=== PATIENT | male | born 1990 | race Two or more races ===

== ENCOUNTER 2020-09-09 10:22 | Emergency (ER) | payer SELFPAY ==
[2020-09-09] MEDS ORDERED: cefTRIAXone 500 MG Vial IM ONE (11:33)
--- NOTE | 2020-09-09 11:33 | EDM.PDOC ---
ED HPI GENERAL MEDICAL PROBLEM - General Chief Complaint: General Stated Complaint: STD CHECK Time Seen by Provider: 09/09/20 11:16 Source of Information: Reports: Patient, RN. Denies: Old Records History Limitations: Reports: No Limitations - History of Present Illness INITIAL COMMENTS - FREE TEXT/NARRATIVE: 29 yo male presents for STD testing. He states that his girlfriend is currently in care home and while in care home was dx'd with syphilis. He has not been to the clinic for this. He is not having sx's. He found out about his girlfriend's dx a week ago. He does not have a doctor anywhere. 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 (see below) (none) - Related Data Allergies Allergy/AdvReac Type Severity Reaction Status Date / Time No Known Allergies Allergy Verified 09/09/20 10:58 Home Meds: Home Meds NK [No Known Home Meds] 09/09/20 [History] Past Medical History Neurological History: Reports: Head Trauma Social & Family History - Tobacco Use Tobacco Use Status *Q: Current Every Day Tobacco User Years of Tobacco use: 10 Packs/Tins Daily: 0.5 - Caffeine Use Caffeine Use: Reports: Coffee, Energy Drinks, Soda - Recreational Drug Use Recreational Drug Use: Yes Recreational Drug Type: Reports: Marijuana/Hashish Recreational Drug Use Frequency: Weekly ED ROS GENERAL - Review of Systems Review Of Systems: See Below Constitutional: Reports: No Symptoms : Reports: No Symptoms. Denies: Discharge, Dysuria, Frequency, Hematuria, Urgency Skin: Reports: No Symptoms. Denies: Rash ED EXAM, GENERAL - Physical Exam Exam: See Below Exam Limited By: No Limitations General Appearance: Alert, WD/WN, No Apparent Distress (Male) Exam: Normal Inspection Neurological: Alert, Oriented, CN II-XII Intact, Normal Cognition, No Motor/Sensory Deficits Psychiatric: Normal Affect, Normal Mood Skin Exam: Warm, Dry, Intact, Normal Color, No Rash Course - Vital Signs Last Recorded V/S: Last Vital Signs Temp 36.0 C L 09/09/20 11:05 Pulse 94 09/09/20 11:05 Resp 26 H 09/09/20 11:05 BP 153/103 H 09/09/20 11:05 Pulse Ox 98 09/09/20 11:05 - Orders/Labs/Meds Orders: Active Orders 24 hr Category Date Time Status CHLAMYDIA/GC AMPLIFICATION Stat Lab 09/09/20 10:59 Ordered Syphilis [T PALLIDUM SCREENING CASCADE] Urgent Lab 09/09/20 11:13 Ordered Departure - Departure Time of Disposition: 12:05 Disposition: Home, Self-Care 01 Condition: Good Clinical Impression: STD exposure - Discharge Information *PRESCRIPTION DRUG MONITORING PROGRAM REVIEWED*: Not Applicable *COPY OF PRESCRIPTION DRUG MONITORING REPORT IN PATIENT EMLA: Not Applicable Referrals: PCP,None [Primary Care Provider] - Additional Instructions: No sex for 72 hrs, or use a condom if you do. If you test positive for any of these diseases, the [facility] department may contact you. We advise that you get established with a doctor of your own in your area. Sepsis Event Note (ED) - Evaluation Sepsis Screening Result: No Definite Risk - Focused Exam Vital Signs: Vital Signs Temp Pulse Resp BP Pulse Ox 09/09/20 11:05 36.0 C L 94 26 H 153/103 H 98 09/09/20 10:48 36.0 C L 94 26 H 153/103 H 98 - My Orders Last 24 Hours: My Active Orders 09/09/20 10:59 CHLAMYDIA/GC AMPLIFICATION Stat 09/09/20 11:13 Syphilis [T PALLIDUM SCREENING CASCADE] Urgent - Assessment/Plan Last 24 Hours: My Active Orders 09/09/20 10:59 CHLAMYDIA/GC AMPLIFICATION Stat 09/09/20 11:13 Syphilis [T PALLIDUM SCREENING CASCADE] Urgent
[2020-09-09] MEDS ORDERED: Azithromycin 250 MG Tab PO ONE (11:34)
[2020-09-09] MEDS ORDERED: Penicillin G Benzathine 1,200,000 Units/2 ML Syringe IM ONE (11:35)
[2020-09-09] MEDS ORDERED: Penicillin G Benzathine 1,200,000 Units/2 ML Syringe ONE (11:57)
[2020-09-12 03:11] LABS: CHLAMYDIA TRACHOMATIS, NAA Negative (Negative); NEISSERIA GONORRHOEAE, NAA Negative (Negative)
[2020-09-12 06:11] LABS: RPR Reactive (Non Reactive); RPR, QUANT 1:32 (NonRea<1:1); T PALLIDUM ANTIBODIES Reactive (Non Reactive)
== END 2020-09-09 12:28 | disposition home or self-care (01) ==
LOC: JP.ED 10:22
DX: Z20.2 Contact with and (suspected) exposure to infections with a predominantly sexual mode of transmission (principal); Z72.0 Tobacco use
CPT/HCPCS: 86780; 87491; 87591; 96372; 99283; A9270; J0561; J0696; 36415

== ENCOUNTER 2020-12-01 17:48 | Emergency (ER) | payer SELFPAY ==
[2020-12-01] MEDS ORDERED: Diphtheria,Pertussis(Acell),Tetanus Vaccine 0.5 ML Syringe IM ONE (18:01)
[2020-12-01] MEDS ORDERED: Bacitracin Oint 1 GM U/D Packet TOP ONE (18:26)
--- NOTE | 2020-12-01 18:32 | EDM.PDOC ---
ED HPI GENERAL MEDICAL PROBLEM - General Chief Complaint: Trauma Stated Complaint: CUTS TO LEFT SIDE OF BODY Time Seen by Provider: 12/01/20 17:55 Source of Information: Reports: Patient History Limitations: Reports: No Limitations - History of Present Illness INITIAL COMMENTS - FREE TEXT/NARRATIVE: TRAUMA CODE 17:50 MD in room 18:03 Mathew is a 30-year-old male presenting to the ED for evaluation after falling "40 feet" off a ladder while shingling a roof. The patient was applying metal shingles when he lost his footing on the ladder causing him to fall. He did in cise his left thigh and left upper arm on the sharp shingles. The patient states that he landed on his feet and did a parkour rollout move. He denies any other injuries except for the lacerations. He denies any head or neck pain. He has no chest or back pain. He has no obvious deformities. He denies any numbness or tingling. As a side note, the patient did take 10-12 shots of tequila before coming to the ED to "prepare himself". He denies any loss of consciousness and is able to ambulate and converse normally. - Related Data Allergies Allergy/AdvReac Type Severity Reaction Status Date / Time No Known Allergies Allergy Verified 12/01/20 18:23 Home Meds: Home Meds NK [No Known Home Meds] 09/09/20 [History] Past Medical History Neurological History: Reports: Head Trauma Social & Family History - Caffeine Use Caffeine Use: Reports: Coffee, Energy Drinks, Soda Review of Systems - Review of Systems Review Of Systems: See Below Constitutional: Reports: No Symptoms Eyes: Reports: No Symptoms Ears: Reports: No Symptoms Nose: Reports: No Symptoms Mouth/Throat: Reports: No Symptoms Respiratory: Reports: No Symptoms Cardiovascular: Reports: No Symptoms GI/Abdominal: Reports: No Symptoms Genitourinary: Reports: No Symptoms Musculoskeletal: Reports: Arm Pain (Left arm pain just above the elbow adjacent to a laceration.), Other (Left thigh pain adjacent to a laceration.) Skin: Reports: Wound (A 0.8 cm laceration on the left arm and a 3.0 cm laceration on the left thigh.) Neurological: Reports: No Symptoms Psychiatric: Reports: No Symptoms ED EXAM, GENERAL - Physical Exam Exam: See Below Exam Limited By: No Limitations General Appearance: Alert, No Apparent Distress, Anxious Eye Exam: Bilateral Eye: EOMI, PERRL Nose: Normal Inspection Throat/Mouth: Normal Inspection, Normal Oropharynx, Normal Voice, No Airway Compromise Head: Atraumatic, Normocephalic Neck: Normal Inspection, Supple, Non-Tender, Full Range of Motion Respiratory/Chest: No Respiratory Distress, Lungs Clear, Normal Breath Sounds Cardiovascular: Normal Peripheral Pulses, Regular Rate, Rhythm, No Murmur Peripheral Pulses: 2+: Radial (L), Radial (R), Posterior Tibial (L), Posterior Tibial (R) GI/Abdominal: Normal Bowel Sounds, Soft, Non-Tender (Male) Exam: No Hernia Back Exam: Normal Inspection, Full Range of Motion. No: Muscle Spasm, Paraspinal Tenderness, Vertebral Tenderness Extremities: Normal Range of Motion Neurological: Alert, Oriented, CN II-XII Intact, Normal Cognition, No Motor/Sensory Deficits Psychiatric: Normal Affect, Normal Mood, Anxious Skin Exam: Warm, Dry, Wound/Incision (0.8 cm laceration on the left arm just above the elbow. 3.0 cm laceration left posterior lateral thigh that goes deep into the muscle layer.) Lymphatic: No Adenopathy ED TRAUMA PROCEDURES - Laceration/Wound Repair Left Lower Posterior Lateral Arm Lac/Wound Length In cm: 0.8 Appearance: Subcutaneous, Linear Distal NVT: Neuro & Vascular Intact Anesthetic Type: Local Local Anesthesia - Lidocaine (Xylocaine): 1% with EPI Local Anesthetic Volume: 1cc Skin Prep: Chlorhexidine (Hibiciens) Exploration/Debridement/Repair: Wound Explored, In a Bloodless Field, Explored to Base Closed With: Sutures Suture Size: 4-0 # of Sutures: 3 Suture Type: Nylon, Interrupted Tetanus Status Addressed: Yes Complications: No Left Lower Posterior Lateral Thigh Lac/Wound Length In cm: 3.0 Appearance: Muscle Distal NVT: Neuro & Vascular Intact Anesthetic Type: Local Local Anesthesia - Lidocaine (Xylocaine): 1% with EPI Local Anesthetic Volume: 3cc Skin Prep: Chlorhexidine (Hibiciens) Exploration/Debridement/Repair: Wound Explored, In a Bloodless Field, Explored to Base Closed With: Sutures Suture Size: 4-0 # of Sutures: 3 Suture Type: Nylon, Interrupted Tetanus Status Addressed: Yes Complications: No Course - Vital Signs Last Recorded V/S: Last Vital Signs Temp 36.6 C 12/01/20 17:57 Pulse 121 H 12/01/20 18:22 Resp 16 12/01/20 18:22 BP 142/80 H 12/01/20 18:22 Pulse Ox 96 12/01/20 18:22 - Orders/Labs/Meds Orders: Active Orders 24 hr Category Date Time Status Vaccines to be Administered [RC] PER UNIT ROUTINE Care 12/01/20 18:01 Active COMPREHENSIVE METABOLIC PN,CMP [CHEM] Stat Lab 12/01/20 18:00 Received ETHANOL BLOOD MEDICAL [CHEM] Stat Lab 12/01/20 18:00 Received Bacitracin [Bacitracin Oint 1 GM] Med 12/01/20 18:26 Once 1 dose TOP ONETIME ONE Medication Orders Bacitracin (Bacitracin Oint 1 Gm U/D Packet) 1 dose TOP ONETIME ONE Stop: 12/01/20 18:27 Labs: Laboratory Tests 12/01/20 Range/Units 18:00 WBC 8.0 (4.5-11.0) K/uL RBC 4.96 (4.30-5.90) M/uL Hgb 15.2 H (12.0-15.0) g/dL Hct 44.6 (40.0-54.0) % MCV 90 (80-98) fL MCH 31 (27-31) pg MCHC 34 (32-36) % Plt Count 302 (150-400) K/uL Neut % (Auto) 53.5 (36-66) % Lymph % (Auto) 35.4 (24-44) % White % (Auto) 5.7 (2-6) % Eos % (Auto) 5.0 H (2-4) % Baso % (Auto) 0.4 (0-1) % Meds: Medications Generic Name Dose Route Start Last Admin Trade Name Freq PRN Reason Stop Dose Admin Bacitracin 1 dose 12/01/20 18:26 Bacitracin Oint 1 Gm U/D Packet TOP 12/01/20 18:27 ONETIME ONE Discontinued Medications Generic Name Dose Route Start Last Admin Trade Name Freq PRN Reason Stop Dose Admin Diphtheria/Tetanus/Acell Pertussis 0.5 ml 12/01/20 18:01 Diphtheria,Pertussis(Acell),Tetanus Vaccine 0.5 Ml Syringe IM 12/01/20 18:02 .ONCE ONE Lidocaine HCl 5 ml 12/01/20 18:01 Lidocaine 1% 5 Ml Sdv INJECT 12/01/20 18:02 ONETIME ONE - Re-Assessments/Exams Free Text/Narrative Re-Assessment/Exam: 12/01/20 18:35 presently, the patient had no substantial injuries other than the lacerations. He is neurovascularly intact. The lacerations were repaired using 4-0 Ethilon requiring 3 simple interrupted sutures at each site. Patient tolerated procedure well. Care of the lacerations were discussed. Indications return to the ED were discussed with the patient. At this time he is cleared and able to return home. Departure - Departure Time of Disposition: 18:27 Disposition: Home, Self-Care 01 Clinical Impression: Fall from ladder Qualifiers: Encounter type: initial encounter Qualified Code(s): W11.XXXA - Fall on and from ladder, initial encounter Laceration of left upper extremity Qualifiers: Encounter type: initial encounter Qualified Code(s): S41.112A - Laceration without foreign body of left upper arm, initial encounter Laceration of left thigh Qualifiers: Encounter type: initial encounter Qualified Code(s): S71.112A - Laceration without foreign body, left thigh, initial encounter - Discharge Information Instructions: Laceration Care, Adult Referrals: PCP,None [Primary Care Provider] - Care Plan Goals: You will likely be more sore tomorrow due to the fall. You may want to take Tylenol or ibuprofen for the pain. We placed sutures to closure wounds on your arm and leg. These will need to be removed in 7 days. You may go to your local clinic or return to the ED for this. Please apply a light coating of Neosporin or bacitracin to the wounds once a day. Keep the wounds clean and dry for the next 24 hours. He is to be careful when on the ladder especially around sharp objects. We will free to contact us should you have any questions. Sepsis Event Note (ED) - Focused Exam Vital Signs: Vital Signs Temp Pulse Resp BP Pulse Ox 12/01/20 18:22 121 H 16 142/80 H 96 12/01/20 17:57 36.6 C 122 H 16 142/99 H 96 - Problem List & Annotations (1) Fall from ladder SNOMED Code(s): 68332383 Code(s): W11.XXXA - FALL ON AND FROM LADDER, INITIAL ENCOUNTER Status: Acute Priority: High Current Visit: Yes Qualifiers: Encounter type: initial encounter Qualified Code(s): W11.XXXA - Fall on and from ladder, initial encounter (2) Laceration of left thigh SNOMED Code(s): 918768317, 27406889013082175 Code(s): S71.112A - LACERATION WITHOUT FOREIGN BODY, LEFT THIGH, INIT ENCNTR Status: Acute Priority: High Current Visit: Yes Qualifiers: Encounter type: initial encounter Qualified Code(s): S71.112A - Laceration without foreign body, left thigh, initial encounter (3) Laceration of left upper extremity SNOMED Code(s): 280882277 Code(s): S41.112A - LACERATION W/O FOREIGN BODY OF LEFT UPPER ARM, INIT ENCNTR Status: Acute Priority: High Current Visit: Yes Qualifiers: Encounter type: initial encounter Qualified Code(s): S41.112A - Laceration without foreign body of left upper arm, initial encounter - Problem List Review Problem List Initiated/Reviewed/Updated: Yes - My Orders Last 24 Hours: My Active Orders 12/01/20 18:00 COMPREHENSIVE METABOLIC PN,CMP [CHEM] Stat ETHANOL BLOOD MEDICAL [CHEM] Stat 12/01/20 18:01 Vaccines to be Administered [RC] PER UNIT ROUTINE 12/01/20 18:26 Bacitracin [Bacitracin Oint 1 GM] 1 dose TOP ONETIME ONE - Assessment/Plan Last 24 Hours: My Active Orders 12/01/20 18:00 COMPREHENSIVE METABOLIC PN,CMP [CHEM] Stat ETHANOL BLOOD MEDICAL [CHEM] Stat 12/01/20 18:01 Vaccines to be Administered [RC] PER UNIT ROUTINE 12/01/20 18:26 Bacitracin [Bacitracin Oint 1 GM] 1 dose TOP ONETIME ONE
== END 2020-12-01 18:42 | disposition home or self-care (01) ==
LOC: JP.ED 17:48
DX: S71.112A Laceration without foreign body, left thigh, initial encounter (principal); S41.112A Laceration without foreign body of left upper arm, initial encounter; Z23 Encounter for immunization; W11.XXXA Fall on and from ladder, initial encounter; W26.8XXA Contact with other sharp object(s), not elsewhere classified, initial encounter
CPT/HCPCS: 12002; 36415; 80053; 80307; 85025; 90471; 90715; 99284-25

== ENCOUNTER 2020-12-30 20:58 | Emergency (ER) | payer SELFPAY ==
[2020-12-30] MEDS ORDERED: cefTRIAXone 1 GM Vial IM ONE (21:22)
--- NOTE | 2020-12-30 21:30 | EDM.PDOC ---
ED HPI GENERAL MEDICAL PROBLEM - General Chief Complaint: Lower Extremity Injury/Pain Stated Complaint: SWELLING ON L LEG Time Seen by Provider: 12/30/20 21:18 Source of Information: Reports: Patient History Limitations: Reports: No Limitations - History of Present Illness INITIAL COMMENTS - FREE TEXT/NARRATIVE: Mathew is a 30-year-old male presenting to the ED for evaluation of a red, painful, swollen left anterior wall. The patient initially injured the area while skateboarding 4 days ago. He says that he did a jump, went down a ramp, and the board kicked back hitting him just below the left knee. He has been keeping the area covered and putting antibiotic ointment on it, however, it is become more painful, started to express pus, and has become more swollen and red prompting him to come in for evaluation. The patient meets sepsis criteria based on the screening with a tachycardia and redness of the wound. Denies any fever or chills, nausea or vomiting, numbness or tingling, or weakness in the left lower extremity. Left Lower Leg Pain Score (Numeric/FACES): 5 - Related Data Allergies Allergy/AdvReac Type Severity Reaction Status Date / Time bee venom protein (honey bee) Allergy Anaphylactic Verified 12/30/20 21:10 Shock cauliflower Allergy Anaphylactic Verified 12/30/20 21:10 Shock Home Meds: Home Meds NK [No Known Home Meds] 09/09/20 [History] Past Medical History Neurological History: Reports: Head Trauma Social & Family History - Tobacco Use Tobacco Use Status *Q: Light Tobacco User Years of Tobacco use: 22 Packs/Tins Daily: 0.2 - Caffeine Use Caffeine Use: Reports: Coffee, Energy Drinks, Soda Review of Systems - Review of Systems Review Of Systems: See Below Constitutional: Reports: No Symptoms Musculoskeletal: Reports: Leg Pain (Proximal left leg pain, swelling, increased redness, and purulent discharge from the anterior wall wound.) Skin: Reports: Wound (A 4 x 5 cm area of redness, edema, increased temperature, and tenderness. Proximal anterior wall on the left.) Neurological: Reports: No Symptoms ED EXAM, GENERAL - Physical Exam Exam: See Below Exam Limited By: No Limitations General Appearance: Alert, No Apparent Distress Cardiovascular: Normal Peripheral Pulses, Regular Rate, Rhythm, No Murmur, Tachycardia Peripheral Pulses: 2+: Posterior Tibial (L) Extremities: Increased Warmth (Area of increased warmth, redness, swelling, with a midline wound measuring 4.1 x 5 cm. There is purulent discharge from the center of this wound. The area is quite tender to palpation.) Neurological: Alert, Oriented, Normal Cognition, No Motor/Sensory Deficits Skin Exam: Erythema, Increased Warmth, Wound/Incision (Midline wound approximately 5 cm below the knee on the anterior wall accompanied by an area of 4.1 x 5 cm with increased erythema, temperature, redness, edema and a central drain producing purulent discharge. This was cultured.) Lymphatic: No Adenopathy Course - Vital Signs Last Recorded V/S: Last Vital Signs Temp 35.8 C L 12/30/20 21:13 Pulse 105 H 12/30/20 21:13 Resp 18 12/30/20 21:13 BP 168/102 H 12/30/20 21:13 Pulse Ox 98 12/30/20 21:13 - Orders/Labs/Meds Orders: Active Orders 24 hr Category Date Time Status CULTURE WOUND + SMEAR [RM] Stat Lab 12/30/20 22:20 Results Labs: Laboratory Tests 12/30/20 12/30/20 12/30/20 Range/Units 21:34 21:34 21:34 WBC 8.1 (4.5-11.0) K/uL RBC 4.59 (4.30-5.90) M/uL Hgb 14.0 (12.0-15.0) g/dL Hct 41.2 (40.0-54.0) % MCV 90 (80-98) fL MCH 31 (27-31) pg MCHC 34 (32-36) % Plt Count 275 (150-400) K/uL Neut % (Auto) 56.3 (36-66) % Lymph % (Auto) 30.6 (24-44) % Rankin % (Auto) 8.4 H (2-6) % Eos % (Auto) 4.3 H (2-4) % Baso % (Auto) 0.4 (0-1) % Sodium 142 (140-148) mmol/L Potassium 3.9 (3.6-5.2) mmol/L Chloride 103 (100-108) mmol/L Carbon Dioxide 26 (21-32) mmol/L Anion Gap 13.5 (5.0-14.0) mmol/L BUN 21 H (7-18) mg/dL Creatinine 0.9 (0.8-1.3) mg/dL Est Cr Clr Drug Dosing 128.60 mL/min Estimated GFR (MDRD) > 60 (>60) Glucose 200 H (74-106) mg/dL Lactic Acid 1.2 (0.4-2.0) mmol/L Calcium 8.4 L (8.5-10.1) mg/dL C-Reactive Protein 0.32 H (0.0-0.3) mg/dL Meds: Medications Discontinued Medications Generic Name Dose Route Start Last Admin Trade Name Freq PRN Reason Stop Dose Admin Ceftriaxone Sodium 1 gm 12/30/20 21:22 12/30/20 21:41 Ceftriaxone 1 Gm Vial IM 12/30/20 21:23 1 gm ONETIME ONE Administration Lidocaine HCl 2 ml 12/30/20 21:32 12/30/20 21:41 Lidocaine 1% 5 Ml Sdv INJECT 12/30/20 21:33 2 ml ONETIME ONE Administration - Re-Assessments/Exams Free Text/Narrative Re-Assessment/Exam: 12/30/20 21:29 because the patient met sepsis criteria on the triage, we did check a CBC, basic metabolic panel, CRP, and lactic acid. We will initiate antibiotic therapy with Rocephin 1 g IM. This is likely a significant cellulitis, however, by examination I do not believe the patient is septic. 12/30/20 22:26 I reviewed the patient's labs showing a leukocyte count of 8.1 with a hemoglobin of 14.0 and hematocrit of 41.2. Platelet count is 275,000. Basic metabolic profile shows a sodium 142, potassium 3.9, chloride of 103, bicarbonate of 26, BUN of 21 with a creatinine of 0.9 and a glucose of 200. Raises a suspicion for diabetes. The C-reactive protein is 0.32 and the lactic acid is normal at 1.2. The patient was given Rocephin 1 g IM to initiate therapy. We will put him on cephalexin 500 mg 4 times daily for 10 days. A wound culture is currently pending and should this come back positive for MRSA we would add Bactrim to the medical regime. At this time, the patient is suitable for discharge in satisfactory condition. Indications return to the ED were discussed. All questions were answered prior to discharge. Departure - Departure Time of Disposition: 22:28 Disposition: Home, Self-Care 01 Clinical Impression: Cellulitis of left leg without foot - Discharge Information Instructions: Cellulitis, Adult, [id number] Referrals: PCP,None [Primary Care Provider] - Forms: ED Department Discharge Care Plan Goals: Your work-up today shown that you have a significant skin infection. This appears to be localized to the leg itself and not in your bloodstream. We initiated antibiotic therapy with the shot that you received called Rocephin. I am also going to continue this with oral medication called cephalexin that you will be taking 4 times a day for the next 10 days. You should see significant improvement in the wound over the course of the next 2 to 3 days. Of note, your blood glucose is significantly elevated at 200 so I would recommend following up with your primary care provider to discuss whether or not diabetes may be needing to be treated. Certainly feel free to return to the ED for reevaluation should this wound worsen. A wound culture is currently pending and if it shows that the organism is resistant to the antibiotics, we will contact you to change antibiotics. Sepsis Event Note (ED) - Evaluation Sepsis Screening Result: Possible Sepsis Risk - Focused Exam Vital Signs: Vital Signs Temp Pulse Resp BP Pulse Ox 12/30/20 21:13 35.8 C L 105 H 18 168/102 H 98 12/30/20 21:08 35.8 C L 105 H 18 168/102 H 98 - Problem List & Annotations (1) Cellulitis of left leg without foot SNOMED Code(s): 393793528 Code(s): L03.116 - CELLULITIS OF LEFT LOWER LIMB Status: Acute Priority: Medium Current Visit: Yes - Problem List Review Problem List Initiated/Reviewed/Updated: Yes - My Orders Last 24 Hours: My Active Orders 12/30/20 22:20 CULTURE WOUND + SMEAR [RM] Stat - Assessment/Plan Last 24 Hours: My Active Orders 12/30/20 22:20 CULTURE WOUND + SMEAR [RM] Stat
== END 2020-12-30 22:41 | disposition home or self-care (01) ==
LOC: JP.ED 20:58
DX: L03.116 Cellulitis of left lower limb (principal); Z91.030 Bee allergy status; Z72.0 Tobacco use; Z91.018 Allergy to other foods
CPT/HCPCS: 36415; 80048; 83605; 85025; 86140; 87070; 87205; 96372; 99283; J0696

== ENCOUNTER 2021-04-04 02:28 | Emergency (ER) | payer SELFPAY ==
--- NOTE | 2021-04-04 03:01 | EDM.PDOC ---
ED HPI GENERAL MEDICAL PROBLEM - General Chief Complaint: Upper Extremity Injury/Pain Stated Complaint: LEFT ARM PAIN Time Seen by Provider: 04/04/21 02:40 Source of Information: Reports: Patient History Limitations: Reports: No Limitations - History of Present Illness INITIAL COMMENTS - FREE TEXT/NARRATIVE: 30-year-old male was sleeping when he heard the child crying so he rolled over in bed to get up and as he was getting out of his bed the left shoulder and upper arm tightened and became painful. This then radiated into the front of his chest, it felt better to hold his arm against his chest but if he tried to move it it was sore and it was worse if he extended his arm. He started to panic thinking he was having a heart attack and came in to be seen. The pain went away by the time he got to the emergency room. He is anxious, jittery and his blood pressure is elevated at 179/109 and his pulse is over 140. He is afebrile. Onset: Sudden (Woke up with pain just over an hour ago) Location: Reports: Upper Extremity, Left Associated Symptoms: Reports: No Other Symptoms - Related Data Allergies Allergy/AdvReac Type Severity Reaction Status Date / Time bee venom protein (honey bee) Allergy Anaphylactic Verified 04/04/21 02:44 Shock cauliflower Allergy Anaphylactic Verified 04/04/21 02:44 Shock Home Meds: Home Meds NK [No Known Home Meds] 09/09/20 [History] Past Medical History Cardiovascular History: Reports: Hypertension Neurological History: Reports: Head Trauma - Infectious Disease History Infectious Disease History: Reports: Chicken Pox Social & Family History - Tobacco Use Tobacco Use Status *Q: Current Every Day Tobacco User Years of Tobacco use: 15 Packs/Tins Daily: 1 - Caffeine Use Caffeine Use: Reports: Energy Drinks - Recreational Drug Use Recreational Drug Use: Yes Drug Use in Last 12 Months: Yes Recreational Drug Type: Reports: Marijuana/Hashish Recreational Drug Use Frequency: Not Used In Over 1 Month Review of Systems - Review of Systems Review Of Systems: See Below Constitutional: Denies: Fever Respiratory: Reports: No Symptoms Cardiovascular: Reports: Chest Pain (Sharp pain in the left anterior chest radiating into the shoulder) Musculoskeletal: Reports: Arm Pain (Left side) Skin: Reports: No Symptoms Neurological: Reports: No Symptoms Psychiatric: Reports: Anxiety ED EXAM, GENERAL - Physical Exam Exam: See Below Exam Limited By: No Limitations General Appearance: Alert, No Apparent Distress, Anxious Eye Exam: Bilateral Eye: Normal Inspection Head: Atraumatic Neck: Supple, Non-Tender Respiratory/Chest: Lungs Clear Cardiovascular: Regular Rate, Rhythm, Tachycardia Extremities: Other (He has some minimal palpation tenderness to the distal deltoid and lateral bicep but no significant pain with active range of motion. Also some mild tenderness to palpation of the costochondral area in the left chest.) Neurological: Alert, Oriented Psychiatric: Anxious Skin Exam: Warm, Dry, Other (No rash over the painful area) Course - Vital Signs Last Recorded V/S: Last Vital Signs Temp 97.0 F 04/04/21 02:48 Pulse 140 H 04/04/21 02:48 Resp 18 04/04/21 02:48 BP 179/109 H 04/04/21 02:48 Pulse Ox 99 04/04/21 02:48 - Re-Assessments/Exams Free Text/Narrative Re-Assessment/Exam: 04/04/21 02:59 Explained to the patient that he likely woke up with a muscle spasm and is still having some lingering discomfort but there is a concern about his tachycardia and blood pressure and there is a possibility of an electrolyte imbalance or mild dehydration causing muscle spasm. I told him I wanted to check his urine and a few blood test to check electrolytes and his kidney function but he said if it "wasn't his heart he was good". He then became anxious about leaving and refused any further work-up. I did strongly recommend that he get a regular doctor to get a physical to follow his blood pressure and he agreed. Departure - Departure Time of Disposition: 03:05 Disposition: Home, Self-Care 01 Clinical Impression: Left arm pain, Tachycardia - Discharge Information Instructions: Muscle Cramps and Spasms, [id number] Referrals: PCP,None [Primary Care Provider] - Forms: ED Department Discharge Care Plan Goals: Stay hydrated, and ibuprofen may be helpful if pain persists, and I would strongly recommend a regular medical checkup with a primary doctor in the near future. You can always return to the emergency room if symptoms are recurring or more persistent. Sepsis Event Note (ED) - Evaluation Sepsis Screening Result: No Definite Risk
== END 2021-04-04 03:06 | disposition home or self-care (01) ==
LOC: JP.ED 02:28
DX: M79.602 Pain in left arm (principal); R00.0 Tachycardia, unspecified; I10 Essential (primary) hypertension; Z72.0 Tobacco use; Z91.030 Bee allergy status; Z91.018 Allergy to other foods
CPT/HCPCS: 99283

== ENCOUNTER 2021-04-04 20:42 | Emergency (ER) | payer SELFPAY ==
--- NOTE | 2021-04-04 21:31 | EDM.PDOC ---
ED HPI GENERAL MEDICAL PROBLEM - General Chief Complaint: Upper Extremity Injury/Pain Stated Complaint: CHEST PAIN, LEFT SHOULDER PAIN Time Seen by Provider: 04/04/21 21:15 Source of Information: Reports: Patient, Family History Limitations: Reports: No Limitations - History of Present Illness INITIAL COMMENTS - FREE TEXT/NARRATIVE: 30-year-old male was seen last night with left arm pain but left before work-up can be done. He is back tonight because the pain is back again, radiates into the axillary area into the anterior left chest. He thinks he is having a "TIA". He also has some pleuritic pain with breathing, feels short of breath with activity. His tachycardia is less intense tonight. No fevers or chills. Onset: Sudden (Symptoms started fairly suddenly just under 24 hours ago when he rolled over in bed) Duration: Hour(s): (22 to 23 hours) Location: Reports: Chest, Upper Extremity, Left Associated Symptoms: Reports: Chest Pain, Shortness of Breath (With activity). Denies: Cough, Fever/Chills, Malaise, Nausea/Vomiting, Weakness Left Axillary Pain Score (Numeric/FACES): 3 - Related Data Allergies Allergy/AdvReac Type Severity Reaction Status Date / Time bee venom protein (honey bee) Allergy Anaphylactic Verified 04/04/21 20:54 Shock cauliflower Allergy Anaphylactic Verified 04/04/21 20:54 Shock Home Meds: Home Meds NK [No Known Home Meds] 09/09/20 [History] Past Medical History Cardiovascular History: Reports: Hypertension Neurological History: Reports: Head Trauma - Infectious Disease History Infectious Disease History: Reports: Chicken Pox Social & Family History - Tobacco Use Tobacco Use Status *Q: Current Every Day Tobacco User Years of Tobacco use: 15 Packs/Tins Daily: 1 - Caffeine Use Caffeine Use: Reports: Energy Drinks - Recreational Drug Use Recreational Drug Use: Yes Drug Use in Last 12 Months: Yes Recreational Drug Type: Reports: Marijuana/Hashish Review of Systems - Review of Systems Review Of Systems: See Below Constitutional: Denies: Fever Eyes: Reports: No Symptoms Respiratory: Reports: Pleuritic Chest Pain Cardiovascular: Reports: Chest Pain GI/Abdominal: Denies: Abdominal Pain Musculoskeletal: Reports: Muscle Pain (Sore in the left deltoid and left anterior chest) Skin: Reports: No Symptoms. Denies: Rash Neurological: Reports: No Symptoms ED EXAM, GENERAL - Physical Exam Exam: See Below Exam Limited By: No Limitations General Appearance: Alert, No Apparent Distress Eye Exam: Bilateral Eye: Normal Inspection Head: Atraumatic Neck: Supple, Non-Tender Respiratory/Chest: Lungs Clear, Other (Patient is very sore to palpation along the left costochondral area of the anterior left chest, also sore through the anterior left deltoid. Increased pain with flexion of the shoulder against resistance. No pain with passive range of motion.) Cardiovascular: Regular Rate, Rhythm, Tachycardia (Mild tachycardia, not as sign ificant as last evening) GI/Abdominal: Soft, Non-Tender Neurological: Alert, Oriented Psychiatric: Anxious Skin Exam: Warm, Dry #1 Interpretation EKG Date: 04/04/21 Rhythm: NSR Course - Vital Signs Last Recorded V/S: Last Vital Signs Temp 97.0 F 04/04/21 21:03 Pulse 118 H 04/04/21 21:03 Resp 16 04/04/21 21:03 BP 151/102 H 04/04/21 21:03 Pulse Ox 98 04/04/21 21:03 - Orders/Labs/Meds Orders: Active Orders 24 hr Category Date Time Status Chest 2V [CR] Stat Exams 04/04/21 21:16 Taken EKG 12 Lead [EK] Routine Ther 04/04/21 21:05 Ordered Labs: Laboratory Tests 04/04/21 04/04/21 04/04/21 Range/Units 21:05 21:06 21:31 WBC 8.9 (4.5-11.0) K/uL RBC 5.04 (4.30-5.90) M/uL Hgb 15.1 H (12.0-15.0) g/dL Hct 44.0 (40.0-54.0) % MCV 87 (80-98) fL MCH 30 (27-31) pg MCHC 34 (32-36) % Plt Count 296 (150-400) K/uL Neut % (Auto) 52.4 (36-66) % Lymph % (Auto) 36.7 (24-44) % [place] % (Auto) 7.6 H (2-6) % Eos % (Auto) 2.9 (2-4) % Baso % (Auto) 0.4 (0-1) % D-Dimer, Quantitative (0.0-500.0) ng/mL Sodium (140-148) mmol/L Potassium (3.6-5.2) mmol/L Chloride (100-108) mmol/L Carbon Dioxide (21-32) mmol/L Anion Gap (5.0-14.0) mmol/L BUN (7-18) mg/dL Creatinine (0.8-1.3) mg/dL Est Cr Clr Drug Dosing mL/min Estimated GFR (MDRD) (>60) Glucose (74-106) mg/dL Calcium (8.5-10.1) mg/dL Troponin I (0.000-0.056) ng/mL Urine Color Yellow (YELLOW) Urine Appearance Clear (CLEAR) Urine pH 5.5 (5.0-8.0) Ur Specific [place] 1.025 (1.008-1.030) Urine Protein Negative (NEGATIVE) mg/dL Urine Glucose (UA) Negative (NEGATIVE) mg/dL Urine Ketones Trace H (NEGATIVE) mg/dL Urine Occult Blood Negative (NEGATIVE) Urine Nitrite Negative (NEGATIVE) Urine Bilirubin Negative (NEGATIVE) Urine Urobilinogen 0.2 (0.2-1.0) EU/dL Ur Leukocyte Esterase Negative (NEGATIVE) Urine RBC 0-5 (0-5) Urine WBC 0-5 (0-5) Ur Epithelial Cells Not seen Amorphous Sediment Occasional Urine Bacteria Occasional Urine Mucus Occasional Urine Opiates Screen Negative (NEGATIVE) Ur Oxycodone Screen Negative (NEGATIVE) Urine Methadone Screen Negative (NEGATIVE) Ur Propoxyphene Screen Negative (NEGATIVE) Ur Barbiturates Screen Negative (NEGATIVE) Ur Tricyclics Screen Negative (NEGATIVE) Ur Phencyclidine Scrn Negative (NEGATIVE) Ur Amphetamine Screen Negative (NEGATIVE) U Methamphetamines Scrn Presumptive positive H (NEGATIVE) Urine MDMA Screen Negative (NEGATIVE) U Benzodiazepines Scrn Negative (NEGATIVE) U Cocaine Metab Screen Negative (NEGATIVE) U Marijuana (THC) Screen Negative (NEGATIVE) 04/04/21 04/04/21 Range/Units 21:31 21:31 WBC (4.5-11.0) K/uL RBC (4.30-5.90) M/uL Hgb (12.0-15.0) g/dL Hct (40.0-54.0) % MCV (80-98) fL MCH (27-31) pg MCHC (32-36) % Plt Count (150-400) K/uL Neut % (Auto) (36-66) % Lymph % (Auto) (24-44) % [place] % (Auto) (2-6) % Eos % (Auto) (2-4) % Baso % (Auto) (0-1) % D-Dimer, Quantitative 393.08 (0.0-500.0) ng/mL Sodium 143 (140-148) mmol/L Potassium 3.9 (3.6-5.2) mmol/L Chloride 104 (100-108) mmol/L Carbon Dioxide 26 (21-32) mmol/L Anion Gap 12.8 (5.0-14.0) mmol/L BUN 12 (7-18) mg/dL Creatinine 1.0 (0.8-1.3) mg/dL Est Cr Clr Drug Dosing 113.53 mL/min Estimated GFR (MDRD) > 60 (>60) Glucose 146 H (74-106) mg/dL Calcium 8.6 (8.5-10.1) mg/dL Troponin I < 0.017 (0.000-0.056) ng/mL Urine Color (YELLOW) Urine Appearance (CLEAR) Urine pH (5.0-8.0) Ur Specific [place] (1.008-1.030) Urine Protein (NEGATIVE) mg/dL Urine Glucose (UA) (NEGATIVE) mg/dL Urine Ketones (NEGATIVE) mg/dL Urine Occult Blood (NEGATIVE) Urine Nitrite (NEGATIVE) Urine Bilirubin (NEGATIVE) Urine Urobilinogen (0.2-1.0) EU/dL Ur Leukocyte Esterase (NEGATIVE) Urine RBC (0-5) Urine WBC (0-5) Ur Epithelial Cells Amorphous Sediment Urine Bacteria Urine Mucus Urine Opiates Screen (NEGATIVE) Ur Oxycodone Screen (NEGATIVE) Urine Methadone Screen (NEGATIVE) Ur Propoxyphene Screen (NEGATIVE) Ur Barbiturates Screen (NEGATIVE) Ur Tricyclics Screen (NEGATIVE) Ur Phencyclidine Scrn (NEGATIVE) Ur Amphetamine Screen (NEGATIVE) U Methamphetamines Scrn (NEGATIVE) Urine MDMA Screen (NEGATIVE) U Benzodiazepines Scrn (NEGATIVE) U Cocaine Metab Screen (NEGATIVE) U Marijuana (THC) Screen (NEGATIVE) - Re-Assessments/Exams Free Text/Narrative Re-Assessment/Exam: 04/04/21 21:30 EKG was done which was normal. CBC CMP troponin D-dimer and urine drug screen were obtained. Also a two-view chest x-ray. 04/04/21 22:35 D-dimer was normal, troponin was 0, all his labs were normal except his urine was positive for methamphetamine. This patient is having chest wall pain or musc uloskeletal discomfort exacerbated by methamphetamine abuse. He was encouraged to use an anti-inflammatory for the next couple of days and avoid any further methamphetamine use. Departure - Departure Time of Disposition: 22:40 Disposition: Home, Self-Care 01 Clinical Impression: Methamphetamine abuse, Acute chest wall pain - Discharge Information Instructions: Chest Wall Pain, [id number] Referrals: PCP,None [Primary Care Provider] - Forms: ED Department Discharge Care Plan Goals: Take ibuprofen or naproxen daily for the next couple of days and increase a ctivity as tolerated. Avoid abusing methamphetamine in the future, it just makes physical symptoms worse. Sepsis Event Note (ED) - Evaluation Sepsis Screening Result: No Definite Risk - Focused Exam Vital Signs: Vital Signs Temp Pulse Resp BP Pulse Ox 04/04/21 21:03 97.0 F 118 H 16 151/102 H 98 - My Orders Last 24 Hours: My Active Orders 04/04/21 21:05 EKG 12 Lead [EK] Routine 04/04/21 21:16 Chest 2V [CR] Stat - Assessment/Plan Last 24 Hours: My Active Orders 04/04/21 21:05 EKG 12 Lead [EK] Routine 04/04/21 21:16 Chest 2V [CR] Stat
--- NOTE | 2021-04-05 09:52 | CR ---
CHEST: 2 view CLINICAL HISTORY:Chest pain COMPARISON:None FINDINGS: The heart size, pulmonary vascularity and hilar structures are normal. No infiltrate effusion or pneumothorax is seen. IMPRESSION: No acute cardiopulmonary process.
== END 2021-04-04 22:40 | disposition home or self-care (01) ==
LOC: JP.ED 20:42
DX: R07.89 Other chest pain (principal); F15.10 Other stimulant abuse, uncomplicated; I10 Essential (primary) hypertension; Z72.0 Tobacco use; Z91.030 Bee allergy status; Z91.048 Other nonmedicinal substance allergy status
CPT/HCPCS: 36415; 71046; 71046-26; 80048; 80305-QW; 81001; 84484; 85025; 85379; 93005; 99285-25

== ENCOUNTER 2021-08-02 01:33 | Emergency (ER) | payer SELFPAY ==
[2021-08-02] MEDS ORDERED: Sodium Chloride 0.9% 10 ML Syringe FLUSH PRN (01:57)
[2021-08-02] MEDS ORDERED: LORazepam 2 MG/ML SDV IVPUSH ONE (01:57)
[2021-08-02 06:20] LABS: CORONAVIRUS COVID-19 NAA NEGATIVE (NEGATIVE)
[2021-08-02] MEDS ORDERED: Nitroglycerin 0.4 MG Tab.SL SL ONE (06:33)
== END 2021-08-02 08:10 ==
LOC: JP.ED 01:33
DX: F41.0 Panic disorder [episodic paroxysmal anxiety] (principal); F10.129 Alcohol abuse with intoxication, unspecified; I10 Essential (primary) hypertension; Z91.030 Bee allergy status; Z91.048 Other nonmedicinal substance allergy status; Z20.822 Contact with and (suspected) exposure to COVID-19; Y90.3 Blood alcohol level of 60-79 mg/100 ml
CPT/HCPCS: 0241U; 36415; 80053; 80305-QW; 80307; 84484; 85025; 93005; 96374; 99283; 99285-25; A9270-GY; J2060

== ENCOUNTER 2021-09-04 08:30 | Emergency (ER) | payer MEDICAID, OTHER ==
[2021-09-04] MEDS ORDERED: Ketorolac 30 MG/ML SDV IM ONE (10:00)
[2021-09-04 12:19] LABS: CORONAVIRUS COVID-19 NAA NEGATIVE (NEGATIVE)
== END 2021-09-04 11:56 ==
LOC: JP.ED 08:30
DX: S43.102A Unspecified dislocation of left acromioclavicular joint, initial encounter (principal); S44.32XA Injury of axillary nerve, left arm, initial encounter; R20.2 Paresthesia of skin; R20.0 Anesthesia of skin; I10 Essential (primary) hypertension; Z86.16 Personal history of COVID-19; Z72.0 Tobacco use; Z91.030 Bee allergy status; Z91.048 Other nonmedicinal substance allergy status; Z20.822 Contact with and (suspected) exposure to COVID-19; W26.0XXA Contact with knife, initial encounter
CPT/HCPCS: 0241U; 36415; 73030-LT; 80048; 85025; 93010; 96372; 99283; 99284-25; J1885

== ENCOUNTER 2022-09-20 03:33 | Emergency (ER) | payer SELFPAY ==
[2022-09-20 04:17] LABS: BASOPHILS ABSOLUTE AUTO 0.03 K/uL (0.00-0.10); BASOPHILS PERCENT AUTO 0.5 % (0.1-1.3); EOSINOPHILS ABSOLUTE AUTO 0.11 K/uL (0.00-0.40); EOSINOPHILS PERCENT AUTO 1.9 % (0.0-5.4); HEMATOCRIT 16.4 % (38.4-49.7); IMMATURE GRAN PERCENT AUTO 0.3 % (0.0-0.7); LYMPHOCYTES ABSOLUTE AUTO 1.44 K/uL (0.8-3.3); LYMPHOCYTES PERCENT AUTO 24.6 % (11.4-47.7); MEAN CORPUSCULAR HEMOGLOBIN 26.2 pg (31.6-35.5); MEAN CORPUSCULAR HGB CONC 29.3 g/dL (31.6-35.5); MEAN CORPUSCULAR VOLUME 89.6 fL (81.4-99.0); MONOCYTES ABSOLUTE AUTO 0.51 K/uL (0.20-0.90); MONOCYTES PERCENT AUTO 8.7 % (3.3-12.6); NEUTROPHILS ABSOLUTE AUTO 3.75 K/uL (1.0-7.6); PLATELET COUNT,PLT 170 K/uL (130-375); RED BLOOD CELL COUNT 1.83 M/uL (4.14-5.76); WHITE BLOOD CELL COUNT,WBC 5.9 K/uL (3.2-11.0)
[2022-09-20] MEDS ORDERED: Sodium Chloride 0.9% 10 ML Syringe FLUSH PRN (04:19)
[2022-09-20 04:26] LABS: IMMATURE GRAN ABSOLUTE AUTO 0.02 K/uL (0.00-0.23)
[2022-09-20] MEDS ORDERED: Pantoprazole 40 MG Vial IVPUSH SCH (04:30)
[2022-09-20] MEDS ORDERED: Octreotide 500 MCG in Sodium Chloride 0.9% 497.5 ML IV SCH (04:30)
[2022-09-20 04:31] LABS: INR 1.1; PROTHROMBIN TIME 11.3 sec (9.2-10.6)
[2022-09-20 04:37] LABS: ALANINE AMINOTRANSFERASE,ALT 30 U/L (12-78); ALBUMIN 1.8 g/dL (3.4-5.0); ALKALINE PHOSPHATASE 343 U/L (46-116); ASPARTATE AMNIOTRANSFERASE,AST 52 U/L (15-37); BILIRUBIN TOTAL 0.8 mg/dL (0.2-1.0); BLOOD UREA NITROGEN,BUN 10 mg/dL (7-18); CARBON DIOXIDE,CO2 26 mmol/L (21-32); CHLORIDE,CL 105 mmol/L (100-108); CREATININE 0.7 mg/dL (0.8-1.3); EST CRCL DRUG DOSING (CG) 156.43 mL/min; ESTIMATED GFR 126 mL/min (>60); GLUCOSE RANDOM 110 mg/dL (74-106); LIPASE 203 U/L (73-393); POTASSIUM,K 3.7 mmol/L (3.6-5.2); PROTEIN TOTAL,TP 5.8 g/dL (6.4-8.2); SODIUM,NA 135 mmol/L (140-148)
[2022-09-20 04:38] LABS: A/G RATIO 0.5 (1.2-2.2); ANION GAP 7.7 mmol/L (5.0-14.0)
[2022-09-20] MEDS ORDERED: Ondansetron 4 MG/2 ML SDV IVPUSH ONE (04:54)
[2022-09-20 05:05] LABS: HEMOGLOBIN 4.8 g/dL (12.9-16.9)
[2022-09-20] MEDS ORDERED: HYDROmorphone 1 MG/ML Syringe IVPUSH ONE (05:11)
== END 2022-09-20 06:18 ==
LOC: JP.ED 03:33
DX: K70.30 Alcoholic cirrhosis of liver without ascites (principal); K76.6 Portal hypertension; I85.10 Secondary esophageal varices without bleeding; D62 Acute posthemorrhagic anemia; F17.210 Nicotine dependence, cigarettes, uncomplicated; Z86.16 Personal history of COVID-19; Z91.030 Bee allergy status; Z91.018 Allergy to other foods; Z79.899 Other long term (current) drug therapy; Z20.822 Contact with and (suspected) exposure to COVID-19
CPT/HCPCS: 36415; 36430; 80053; 80307; 83690; 85025; 85610; 86850; 86900; 86901; 86920; 86922; 87635; 93005; 96365; 96366; 96375; 99285; C9113; J1170; J2354; J2405; J3490; J7040; P9016; U0002

== ENCOUNTER 2023-02-07 22:51 | Emergency (ER) | payer OTHER ==
[2023-02-07 23:25] LABS: BASOPHILS ABSOLUTE AUTO 0.06 K/uL (0.00-0.10); EOSINOPHILS ABSOLUTE AUTO 0.07 K/uL (0.00-0.40); EOSINOPHILS PERCENT AUTO 1.2 % (0.0-5.4); HEMATOCRIT 32.5 % (38.4-49.7); HEMOGLOBIN 9.5 g/dL (12.9-16.9); IMMATURE GRAN PERCENT AUTO 0.2 % (0.0-0.7); LYMPHOCYTES ABSOLUTE AUTO 2.38 K/uL (0.8-3.3); LYMPHOCYTES PERCENT AUTO 41.2 % (11.4-47.7); MEAN CORPUSCULAR HEMOGLOBIN 21.7 pg (31.6-35.5); MEAN CORPUSCULAR HGB CONC 29.2 g/dL (31.6-35.5); MEAN CORPUSCULAR VOLUME 74.4 fL (81.4-99.0); MONOCYTES PERCENT AUTO 5.2 % (3.3-12.6); NEUTROPHILS ABSOLUTE AUTO 2.95 K/uL (1.0-7.6); NEUTROPHILS PERCENT AUTO 51.2 % (40.0-78.1); PLATELET COUNT,PLT 208 K/uL (130-375); RED BLOOD CELL COUNT 4.37 M/uL (4.14-5.76); WHITE BLOOD CELL COUNT,WBC 5.8 K/uL (3.2-11.0)
[2023-02-07 23:26] LABS: IMMATURE GRAN ABSOLUTE AUTO 0.01 K/uL (0.00-0.23)
[2023-02-08 00:24] LABS: ALANINE AMINOTRANSFERASE,ALT 91 U/L (12-78); ALBUMIN 3.8 g/dL (3.4-5.0); ALKALINE PHOSPHATASE 264 U/L (46-116); ASPARTATE AMNIOTRANSFERASE,AST 109 U/L (15-37); BILIRUBIN TOTAL 0.8 mg/dL (0.2-1.0); BLOOD UREA NITROGEN,BUN 9 mg/dL (7-18); CALCIUM 7.8 mg/dL (8.5-10.1); CARBON DIOXIDE,CO2 25 mmol/L (21-32); CHLORIDE,CL 110 mmol/L (100-108); CREATININE 0.6 mg/dL (0.8-1.3); EST CRCL DRUG DOSING (CG) 186.51 mL/min; ESTIMATED GFR 131 mL/min (>60); GLUCOSE RANDOM 90 mg/dL (74-106); POTASSIUM,K 3.6 mmol/L (3.6-5.2); PROTEIN TOTAL,TP 7.8 g/dL (6.4-8.2); SODIUM,NA 148 mmol/L (140-148)
[2023-02-08 00:25] LABS: ANION GAP 16.6 mmol/L (5.0-14.0)
== END 2023-02-08 00:11 ==
LOC: JP.ED 22:51
DX: F10.129 Alcohol abuse with intoxication, unspecified (principal); I10 Essential (primary) hypertension; Z91.030 Bee allergy status; Z91.018 Allergy to other foods
CPT/HCPCS: 36415; 80053; 85025; 99283

== ENCOUNTER 2023-02-09 12:20 | Emergency (ER) | payer MEDICAID, OTHER ==
[2023-02-09 14:11] LABS: BASOPHILS ABSOLUTE AUTO 0.03 K/uL (0.00-0.10); BASOPHILS PERCENT AUTO 0.9 % (0.1-1.3); EOSINOPHILS ABSOLUTE AUTO 0.04 K/uL (0.00-0.40); EOSINOPHILS PERCENT AUTO 1.3 % (0.0-5.4); HEMOGLOBIN 9.2 g/dL (12.9-16.9); IMMATURE GRAN PERCENT AUTO 0.3 % (0.0-0.7); LYMPHOCYTES ABSOLUTE AUTO 0.69 K/uL (0.8-3.3); LYMPHOCYTES PERCENT AUTO 21.7 % (11.4-47.7); MEAN CORPUSCULAR HEMOGLOBIN 21.8 pg (31.6-35.5); MEAN CORPUSCULAR HGB CONC 28.8 g/dL (31.6-35.5); MEAN CORPUSCULAR VOLUME 75.8 fL (81.4-99.0); MONOCYTES ABSOLUTE AUTO 0.18 K/uL (0.20-0.90); MONOCYTES PERCENT AUTO 5.7 % (3.3-12.6); NEUTROPHILS ABSOLUTE AUTO 2.23 K/uL (1.0-7.6); NEUTROPHILS PERCENT AUTO 70.1 % (40.0-78.1); PLATELET COUNT,PLT 160 K/uL (130-375); RED BLOOD CELL COUNT 4.22 M/uL (4.14-5.76); WHITE BLOOD CELL COUNT,WBC 3.2 K/uL (3.2-11.0)
[2023-02-09 14:15] LABS: IMMATURE GRAN ABSOLUTE AUTO 0.01 K/uL (0.00-0.23)
[2023-02-09 14:32] LABS: A/G RATIO 0.8 (1.2-2.2); ALANINE AMINOTRANSFERASE,ALT 76 U/L (12-78); ALBUMIN 3.3 g/dL (3.4-5.0); ALKALINE PHOSPHATASE 269 U/L (46-116); ANION GAP 8.9 mmol/L (5.0-14.0); ASPARTATE AMNIOTRANSFERASE,AST 91 U/L (15-37); BILIRUBIN TOTAL 1.2 mg/dL (0.2-1.0); BLOOD UREA NITROGEN,BUN 11 mg/dL (7-18); CALCIUM 8.3 mg/dL (8.5-10.1); CARBON DIOXIDE,CO2 31 mmol/L (21-32); CHLORIDE,CL 103 mmol/L (100-108); CREATININE 0.7 mg/dL (0.8-1.3); EST CRCL DRUG DOSING (CG) 159.86 mL/min; ESTIMATED GFR 125 mL/min (>60); GLUCOSE RANDOM 95 mg/dL (74-106); POTASSIUM,K 3.9 mmol/L (3.6-5.2); PROTEIN TOTAL,TP 7.4 g/dL (6.4-8.2); SODIUM,NA 139 mmol/L (140-148)
== END 2023-02-09 14:47 | disposition home or self-care (01) ==
LOC: JP.ED 12:20
DX: D64.9 Anemia, unspecified (principal); I10 Essential (primary) hypertension; Z86.16 Personal history of COVID-19; Z79.899 Other long term (current) drug therapy; Z91.030 Bee allergy status; Z91.018 Allergy to other foods
CPT/HCPCS: 36415; 80053; 83690; 85025; 99284

== ENCOUNTER 2023-06-06 01:22 | Emergency (ER) | payer OTHER ==
[2023-06-06 01:43] LABS: BASOPHILS ABSOLUTE AUTO 0.05 K/uL (0.00-0.10); BASOPHILS PERCENT AUTO 1.1 % (0.1-1.3); EOSINOPHILS ABSOLUTE AUTO 0.08 K/uL (0.00-0.40); EOSINOPHILS PERCENT AUTO 1.7 % (0.0-5.4); HEMATOCRIT 33.1 % (38.4-49.7); IMMATURE GRAN ABSOLUTE AUTO 0.01 K/uL (0.00-0.23); IMMATURE GRAN PERCENT AUTO 0.2 % (0.0-0.7); LYMPHOCYTES ABSOLUTE AUTO 1.17 K/uL (0.8-3.3); LYMPHOCYTES PERCENT AUTO 25.5 % (11.4-47.7); MEAN CORPUSCULAR HEMOGLOBIN 22.9 pg (31.6-35.5); MEAN CORPUSCULAR HGB CONC 30.2 g/dL (31.6-35.5); MEAN CORPUSCULAR VOLUME 75.7 fL (81.4-99.0); MONOCYTES ABSOLUTE AUTO 0.33 K/uL (0.20-0.90); MONOCYTES PERCENT AUTO 7.2 % (3.3-12.6); NEUTROPHILS ABSOLUTE AUTO 2.94 K/uL (1.0-7.6); NEUTROPHILS PERCENT AUTO 64.3 % (40.0-78.1); PLATELET COUNT,PLT 49 K/uL (130-375); RED BLOOD CELL COUNT 4.37 M/uL (4.14-5.76); WHITE BLOOD CELL COUNT,WBC 4.6 K/uL (3.2-11.0)
== END 2023-06-06 01:47 ==
LOC: JP.ED 01:22
DX: S00.81XA Abrasion of other part of head, initial encounter (principal); S60.511A Abrasion of right hand, initial encounter; F10.129 Alcohol abuse with intoxication, unspecified; I10 Essential (primary) hypertension; Z91.018 Allergy to other foods; Z91.030 Bee allergy status; Z79.899 Other long term (current) drug therapy; Z86.16 Personal history of COVID-19; Y04.2XXA Assault by strike against or bumped into by another person, initial encounter
CPT/HCPCS: 36415; 85025; 99284

== ENCOUNTER 2024-07-04 22:44 | Emergency (ER) | payer MEDICAID ==
[2024-07-04] MEDS ORDERED: Sodium Chloride 0.9% 10 ML Syringe FLUSH PRN (22:46)
[2024-07-04 23:10] LABS: BASOPHILS ABSOLUTE AUTO 0.03 K/uL (0.00-0.10); BASOPHILS PERCENT AUTO 0.8 % (0.1-1.3); EOSINOPHILS ABSOLUTE AUTO 0.12 K/uL (0.00-0.40); EOSINOPHILS PERCENT AUTO 3.3 % (0.0-5.4); HEMATOCRIT 42.2 % (38.4-49.7); HEMOGLOBIN 13.5 g/dL (12.9-16.9); IMMATURE GRAN PERCENT AUTO 0.5 % (0.0-0.7); LYMPHOCYTES ABSOLUTE AUTO 0.75 K/uL (0.8-3.3); LYMPHOCYTES PERCENT AUTO 20.3 % (11.4-47.7); MEAN CORPUSCULAR HEMOGLOBIN 28.9 pg (31.6-35.5); MEAN CORPUSCULAR VOLUME 90.4 fL (81.4-99.0); MONOCYTES ABSOLUTE AUTO 0.26 K/uL (0.20-0.90); NEUTROPHILS ABSOLUTE AUTO 2.51 K/uL (1.0-7.6); NEUTROPHILS PERCENT AUTO 68.1 % (40.0-78.1); PLATELET COUNT,PLT 70 K/uL (130-375); RED BLOOD CELL COUNT 4.67 M/uL (4.14-5.76); WHITE BLOOD CELL COUNT,WBC 3.7 K/uL (3.2-11.0)
[2024-07-04 23:12] LABS: IMMATURE GRAN ABSOLUTE AUTO 0.02 K/uL (0.00-0.23)
[2024-07-04 23:25] LABS: A/G RATIO 0.9 (1.2-2.2); ALANINE AMINOTRANSFERASE,ALT 156 U/L (12-78); ALBUMIN 3.7 g/dL (3.4-5.0); ALKALINE PHOSPHATASE 307 U/L (46-116); ANION GAP 6.7 mmol/L (5.0-14.0); ASPARTATE AMNIOTRANSFERASE,AST 168 U/L (15-37); BILIRUBIN TOTAL 2.7 mg/dL (0.2-1.0); BLOOD UREA NITROGEN,BUN 7 mg/dL (7-18); CALCIUM 8.9 mg/dL (8.5-10.1); CARBON DIOXIDE,CO2 27 mmol/L (21-32); CHLORIDE,CL 107 mmol/L (100-108); CREATININE 0.9 mg/dL (0.8-1.3); ESTIMATED GFR 115 mL/min (>60); GLUCOSE RANDOM 97 mg/dL (74-106); POTASSIUM,K 4.2 mmol/L (3.6-5.2); SODIUM,NA 141 mmol/L (140-148)
[2024-07-04] MEDS: levETIRAcetam in NaCl (iso-os) 1,000 MG in Premix Bag 1 BAG IV ONE (23:25)
[2024-07-04 23:36] LABS: AMPHETAMINES SCREEN, URINE NEGATIVE (NEGATIVE); BARBITURATE SCREEN,URINE NEGATIVE (NEGATIVE); BENZODIAZEPINES SCREEN,URINE PRESUMPTIVE POSITIVE (NEGATIVE); METHADONE SCREEN, URINE NEGATIVE (NEGATIVE); METHAMPHETAMINES SCREEN, URINE NEGATIVE (NEGATIVE); OXYCODONE SCREEN,URINE NEGATIVE (NEGATIVE); PROPOXYPHENE SCREEN,URINE NEGATIVE (NEGATIVE); THC SCREEN,URINE 50 NG/ML NEGATIVE (NEGATIVE)
== END 2024-07-05 01:22 | disposition home or self-care (01) ==
LOC: JP.ED 22:44
DX: G40.409 Other generalized epilepsy and epileptic syndromes, not intractable, without status epilepticus (principal); K70.30 Alcoholic cirrhosis of liver without ascites; F10.10 Alcohol abuse, uncomplicated; I10 Essential (primary) hypertension; F17.210 Nicotine dependence, cigarettes, uncomplicated; Z91.030 Bee allergy status; Z91.018 Allergy to other foods; Z79.899 Other long term (current) drug therapy; Z86.16 Personal history of COVID-19; Y90.9 Presence of alcohol in blood, level not specified
CPT/HCPCS: 36415; 80053; 80305; 85025; 96365; 99284; J1953

== ENCOUNTER 2024-07-05 12:15 | Emergency (ER) | payer MEDICAID ==
[2024-07-05 12:41] LABS: BASOPHILS ABSOLUTE AUTO 0.03 K/uL (0.00-0.10); BASOPHILS PERCENT AUTO 0.8 % (0.1-1.3); EOSINOPHILS ABSOLUTE AUTO 0.13 K/uL (0.00-0.40); EOSINOPHILS PERCENT AUTO 3.3 % (0.0-5.4); HEMATOCRIT 41.2 % (38.4-49.7); HEMOGLOBIN 13.4 g/dL (12.9-16.9); IMMATURE GRAN ABSOLUTE AUTO 0.01 K/uL (0.00-0.23); IMMATURE GRAN PERCENT AUTO 0.3 % (0.0-0.7); LYMPHOCYTES ABSOLUTE AUTO 0.72 K/uL (0.8-3.3); LYMPHOCYTES PERCENT AUTO 18.1 % (11.4-47.7); MEAN CORPUSCULAR HEMOGLOBIN 29.3 pg (31.6-35.5); MEAN CORPUSCULAR HGB CONC 32.5 g/dL (31.6-35.5); MONOCYTES ABSOLUTE AUTO 0.37 K/uL (0.20-0.90); MONOCYTES PERCENT AUTO 9.3 % (3.3-12.6); NEUTROPHILS ABSOLUTE AUTO 2.72 K/uL (1.0-7.6); NEUTROPHILS PERCENT AUTO 68.2 % (40.0-78.1); PLATELET COUNT,PLT 69 K/uL (130-375); RED BLOOD CELL COUNT 4.58 M/uL (4.14-5.76)
[2024-07-05] MEDS ORDERED: levETIRAcetam 500 MG/5 ML Solution ML 473 ml Bottle PO SCH (12:45)
[2024-07-05 13:03] LABS: A/G RATIO 0.8 (1.2-2.2); ALANINE AMINOTRANSFERASE,ALT 135 U/L (12-78); ALBUMIN 3.5 g/dL (3.4-5.0); ALKALINE PHOSPHATASE 261 U/L (46-116); ASPARTATE AMNIOTRANSFERASE,AST 145 U/L (15-37); BILIRUBIN TOTAL 2.8 mg/dL (0.2-1.0); BLOOD UREA NITROGEN,BUN 7 mg/dL (7-18); CARBON DIOXIDE,CO2 28 mmol/L (21-32); CHLORIDE,CL 107 mmol/L (100-108); CREATININE 0.9 mg/dL (0.8-1.3); ESTIMATED GFR 115 mL/min (>60); GLUCOSE RANDOM 90 mg/dL (74-106); POTASSIUM,K 3.7 mmol/L (3.6-5.2); PROTEIN TOTAL,TP 7.7 g/dL (6.4-8.2); SODIUM,NA 143 mmol/L (140-148)
[2024-07-05] MEDS ORDERED: Acetaminophen/Codeine 300-30 MG Tab PO ONE (13:03)
[2024-07-05] MEDS: levETIRAcetam 250 MG Tab PO SCH (13:03)
[2024-07-05] MEDS: oxyCODONE 5 MG Tab PO ONE (13:49)
== END 2024-07-05 15:52 | disposition home or self-care (01) ==
LOC: JP.ED 12:15
DX: R56.9 Unspecified convulsions (principal); S00.03XA Contusion of scalp, initial encounter; I10 Essential (primary) hypertension; Z91.030 Bee allergy status; Z91.018 Allergy to other foods; Z79.899 Other long term (current) drug therapy; Z86.16 Personal history of COVID-19; X58.XXXA Exposure to other specified factors, initial encounter; Y93.89 Activity, other specified
CPT/HCPCS: 36415; 70450; 72125; 80053; 80307; 82140; 85025; 99285; A9270

== ENCOUNTER 2024-08-22 02:08 | Emergency (ER) | payer MEDICAID ==
[2024-08-22 02:33] LABS: BASOPHILS ABSOLUTE AUTO 0.06 K/uL (0.00-0.10); BASOPHILS PERCENT AUTO 0.6 % (0.1-1.3); EOSINOPHILS ABSOLUTE AUTO 0.34 K/uL (0.00-0.40); EOSINOPHILS PERCENT AUTO 3.6 % (0.0-5.4); IMMATURE GRAN ABSOLUTE AUTO 0.07 K/uL (0.00-0.23); IMMATURE GRAN PERCENT AUTO 0.7 % (0.0-0.7); LYMPHOCYTES ABSOLUTE AUTO 2.11 K/uL (0.8-3.3); LYMPHOCYTES PERCENT AUTO 22.6 % (11.4-47.7); MEAN CORPUSCULAR HEMOGLOBIN 27.1 pg (31.6-35.5); MEAN CORPUSCULAR VOLUME 90.5 fL (81.4-99.0); MONOCYTES ABSOLUTE AUTO 0.45 K/uL (0.20-0.90); MONOCYTES PERCENT AUTO 4.8 % (3.3-12.6); NEUTROPHILS ABSOLUTE AUTO 6.31 K/uL (1.0-7.6); NEUTROPHILS PERCENT AUTO 67.7 % (40.0-78.1); PLATELET COUNT,PLT 91 K/uL (130-375); WHITE BLOOD CELL COUNT,WBC 9.3 K/uL (3.2-11.0)
[2024-08-22 02:37] LABS: HEMOGLOBIN 5.7 g/dL (12.9-16.9)
[2024-08-22 03:00] LABS: A/G RATIO 0.6 (1.2-2.2); ALANINE AMINOTRANSFERASE,ALT 33 U/L (12-78); ALBUMIN 2.6 g/dL (3.4-5.0); ALKALINE PHOSPHATASE 372 U/L (46-116); ASPARTATE AMNIOTRANSFERASE,AST 85 U/L (15-37); BLOOD UREA NITROGEN,BUN 8 mg/dL (7-18); CALCIUM 7.7 mg/dL (8.5-10.1); CARBON DIOXIDE,CO2 25 mmol/L (21-32); CHLORIDE,CL 107 mmol/L (100-108); CREATININE 0.7 mg/dL (0.8-1.3); EST CRCL DRUG DOSING (CG) 128.79 mL/min; ESTIMATED GFR 124 mL/min (>60); GLUCOSE RANDOM 121 mg/dL (74-106); POTASSIUM,K 3.3 mmol/L (3.6-5.2); PROTEIN TOTAL,TP 6.9 g/dL (6.4-8.2); SODIUM,NA 144 mmol/L (140-148)
[2024-08-22 03:04] LABS: ANION GAP 15.3 mmol/L (5.0-14.0)
[2024-08-22] MEDS: Pantoprazole 40 MG Vial IVPUSH ONE (04:00)
[2024-08-22] MEDS: Ondansetron 4 MG/2 ML SDV IVPUSH ONE (04:10)
[2024-08-22] MEDS ORDERED: Sodium Chloride 0.9% 10 ML Syringe FLUSH PRN (04:16)
[2024-08-22] MEDS ORDERED: Iopamidol 612 MG/ML 100 ML Bottle IV SCH (04:30)
[2024-08-22] MEDS ORDERED: Sodium Chloride 0.9% 100 ML IV SCH (04:30)
[2024-08-22] MEDS: Sodium Chloride 0.9% 1,000 ML IV ONE (05:43)
== END 2024-08-22 06:30 | disposition other institution (70) ==
LOC: JP.ED 02:08
DX: K92.2 Gastrointestinal hemorrhage, unspecified (principal); M25.512 Pain in left shoulder; I10 Essential (primary) hypertension; Z91.030 Bee allergy status; Z91.018 Allergy to other foods; Z79.899 Other long term (current) drug therapy; Z86.16 Personal history of COVID-19
CPT/HCPCS: 36415; 36430; 73020-26-LT; 73020-LT; 73030-26-LT; 73030-LT; 80053; 80307; 85025; 86850; 86900; 86901; 86920; 86922; 96361; 96374; 96375; 99284; 99285-25; J2405; J2470; J7030; P9016

== ENCOUNTER 2024-10-21 21:41 | Emergency (ER) | payer MEDICAID, OTHER ==
[2024-10-21 22:29] LABS: BASOPHILS ABSOLUTE AUTO 0.03 K/uL (0.00-0.10); BASOPHILS PERCENT AUTO 0.6 % (0.1-1.3); EOSINOPHILS ABSOLUTE AUTO 0.12 K/uL (0.00-0.40); EOSINOPHILS PERCENT AUTO 2.5 % (0.0-5.4); HEMATOCRIT 29.2 % (38.4-49.7); HEMOGLOBIN 8.4 g/dL (12.9-16.9); IMMATURE GRAN PERCENT AUTO 0.2 % (0.0-0.7); LYMPHOCYTES ABSOLUTE AUTO 0.75 K/uL (0.8-3.3); LYMPHOCYTES PERCENT AUTO 15.6 % (11.4-47.7); MEAN CORPUSCULAR HEMOGLOBIN 22.3 pg (31.6-35.5); MEAN CORPUSCULAR VOLUME 77.5 fL (81.4-99.0); MONOCYTES ABSOLUTE AUTO 0.25 K/uL (0.20-0.90); MONOCYTES PERCENT AUTO 5.2 % (3.3-12.6); NEUTROPHILS ABSOLUTE AUTO 3.64 K/uL (1.0-7.6); NEUTROPHILS PERCENT AUTO 75.9 % (40.0-78.1); PLATELET COUNT,PLT 98 K/uL (130-375); RED BLOOD CELL COUNT 3.77 M/uL (4.14-5.76); WHITE BLOOD CELL COUNT,WBC 4.8 K/uL (3.2-11.0)
[2024-10-21 22:42] LABS: INR 1.2; PROTHROMBIN TIME 11.8 sec (9.2-10.6)
[2024-10-21 22:43] LABS: IMMATURE GRAN ABSOLUTE AUTO 0.01 K/uL (0.00-0.23); MEAN CORPUSCULAR HGB CONC 28.8 g/dL (31.6-35.5)
[2024-10-21 22:47] LABS: A/G RATIO 0.8 (1.2-2.2); ALANINE AMINOTRANSFERASE,ALT 42 U/L (12-78); ALBUMIN 3.2 g/dL (3.4-5.0); ALKALINE PHOSPHATASE 250 U/L (46-116); ASPARTATE AMNIOTRANSFERASE,AST 62 U/L (15-37); BILIRUBIN TOTAL 0.9 mg/dL (0.2-1.0); BLOOD UREA NITROGEN,BUN 8 mg/dL (7-18); CALCIUM 8.6 mg/dL (8.5-10.1); CARBON DIOXIDE,CO2 25 mmol/L (21-32); CHLORIDE,CL 112 mmol/L (100-108); CREATININE 0.7 mg/dL (0.8-1.3); EST CRCL DRUG DOSING (CG) 108.67 mL/min; ESTIMATED GFR 123 mL/min (>60); GLUCOSE RANDOM 105 mg/dL (74-106); POTASSIUM,K 3.9 mmol/L (3.6-5.2); PROTEIN TOTAL,TP 7.3 g/dL (6.4-8.2); SODIUM,NA 143 mmol/L (140-148)
[2024-10-21] MEDS: Ondansetron 4 MG/2 ML SDV IVPUSH ONE (22:49)
[2024-10-21 22:54] LABS: ANION GAP 9.9 mmol/L (5.0-14.0)
[2024-10-21] MEDS: Pantoprazole 40 MG Vial IVPUSH ONE (23:43)
== END 2024-10-21 23:50 | disposition home or self-care (01) ==
LOC: JP.ED 21:41
DX: R10.11 Right upper quadrant pain (principal); R07.9 Chest pain, unspecified; Z87.19 Personal history of other diseases of the digestive system; I10 Essential (primary) hypertension; Z86.16 Personal history of COVID-19; Z87.891 Personal history of nicotine dependence; Z91.030 Bee allergy status; Z91.018 Allergy to other foods; Z79.899 Other long term (current) drug therapy
CPT/HCPCS: 36415; 71046; 80053; 82140; 83690; 84484; 85025; 85610; 93005; 96374; 96375; 99285; J2405; J2470

== ENCOUNTER 2024-10-28 03:33 | Emergency (ER) | payer MEDICAID, OTHER ==
[2024-10-28 04:19] LABS: BASOPHILS ABSOLUTE AUTO 0.04 K/uL (0.00-0.10); BASOPHILS PERCENT AUTO 0.7 % (0.1-1.3); EOSINOPHILS ABSOLUTE AUTO 0.27 K/uL (0.00-0.40); EOSINOPHILS PERCENT AUTO 4.9 % (0.0-5.4); HEMATOCRIT 30.5 % (38.4-49.7); IMMATURE GRAN PERCENT AUTO 0.2 % (0.0-0.7); LYMPHOCYTES ABSOLUTE AUTO 1.17 K/uL (0.8-3.3); LYMPHOCYTES PERCENT AUTO 21.2 % (11.4-47.7); MEAN CORPUSCULAR HEMOGLOBIN 22.3 pg (31.6-35.5); MEAN CORPUSCULAR HGB CONC 29.5 g/dL (31.6-35.5); MEAN CORPUSCULAR VOLUME 75.7 fL (81.4-99.0); MONOCYTES ABSOLUTE AUTO 0.27 K/uL (0.20-0.90); MONOCYTES PERCENT AUTO 4.9 % (3.3-12.6); NEUTROPHILS ABSOLUTE AUTO 3.77 K/uL (1.0-7.6); NEUTROPHILS PERCENT AUTO 68.1 % (40.0-78.1); PLATELET COUNT,PLT 126 K/uL (130-375); RED BLOOD CELL COUNT 4.03 M/uL (4.14-5.76); WHITE BLOOD CELL COUNT,WBC 5.5 K/uL (3.2-11.0)
[2024-10-28 04:22] LABS: IMMATURE GRAN ABSOLUTE AUTO 0.01 K/uL (0.00-0.23)
[2024-10-28 04:38] LABS: A/G RATIO 0.8 (1.2-2.2); ALANINE AMINOTRANSFERASE,ALT 40 U/L (12-78); ALBUMIN 3.3 g/dL (3.4-5.0); ALKALINE PHOSPHATASE 244 U/L (46-116); ASPARTATE AMNIOTRANSFERASE,AST 65 U/L (15-37); BILIRUBIN TOTAL 1.2 mg/dL (0.2-1.0); BLOOD UREA NITROGEN,BUN 7 mg/dL (7-18); CALCIUM 9.1 mg/dL (8.5-10.1); CARBON DIOXIDE,CO2 25 mmol/L (21-32); CHLORIDE,CL 109 mmol/L (100-108); CREATININE 0.7 mg/dL (0.8-1.3); EST CRCL DRUG DOSING (CG) 156.88 mL/min; ESTIMATED GFR 123 mL/min (>60); GLUCOSE RANDOM 90 mg/dL (74-106); POTASSIUM,K 3.6 mmol/L (3.6-5.2); PROTEIN TOTAL,TP 7.5 g/dL (6.4-8.2); SODIUM,NA 142 mmol/L (140-148)
[2024-10-28 04:39] LABS: ANION GAP 11.6 mmol/L (5.0-14.0)
[2024-10-28] MEDS: Ondansetron 4 MG/2 ML SDV IVPUSH ONE (04:42)
[2024-10-28] MEDS: Sodium Chloride 0.9% 10 ML Syringe FLUSH PRN ×2 (04:43→05:31)
[2024-10-28] MEDS: fentaNYL 100 MCG/2 ML SDV IVPUSH ONE (04:44)
[2024-10-28 05:06] LABS: APPEARANCE,URINE CLEAR (CLEAR); BILIRUBIN,URINE NEGATIVE (NEGATIVE); COLOR,URINE YELLOW (YELLOW); GLUCOSE,URINE NEGATIVE (NEGATIVE); KETONES,URINE NEGATIVE (NEGATIVE); LEUKOCYTE ESTERASE,URINE NEGATIVE (NEGATIVE); NITRITE,URINE NEGATIVE (NEGATIVE); OCCULT BLOOD,URINE NEGATIVE (NEGATIVE); PROTEIN,URINE NEGATIVE (NEGATIVE); UROBILINOGEN,URINE 0.2 EU/dL (0.2-1.0)
[2024-10-28 05:12] LABS: AMORPHOUS SEDIMENT,URINE NOT SEEN; BACTERIA,URINE RARE; EPITHELIAL CELLS,URINE NOT SEEN; MUCUS,URINE NOT SEEN; RBC,URINE 0-5 (0-5); WBC,URINE 0-5 (0-5)
[2024-10-28] MEDS: Sodium Chloride 0.9% 100 ML IV SCH (05:31)
[2024-10-28] MEDS: Iopamidol 612 MG/ML 100 ML Bottle IV SCH (05:31)
[2024-10-28] MEDS: Sodium Chloride 0.9% 1,000 ML IV STA (05:49)
== END 2024-10-28 06:17 ==
LOC: JP.ED 03:33
DX: R10.11 Right upper quadrant pain (principal); I10 Essential (primary) hypertension; Z91.030 Bee allergy status; Z91.018 Allergy to other foods; Z79.899 Other long term (current) drug therapy; Z87.891 Personal history of nicotine dependence
CPT/HCPCS: 36415; 74177; 80053; 81001; 83605; 83690; 85025; 96360; 96361; 96374; 96375; 99283; 99284; J2405; J3010; J7030; Q9967